=== PATIENT | male | born 1940 | race Caucasian/White ===

== ENCOUNTER 2018-06-06 21:37 | Emergency (ER) | payer MEDICARE, BC ==
[~2018-06-06] VITALS: Ht 177.8 cm; Wt 80.0 kg
[~2018-06-06 21:37] MED LIST: ANTIVERT 25MG25 MG PO; ASPIRIN 32325 MG/TAB PO; CENTRUM1 TAB PO; COQ PO; FISH OIL1 POW; FORTAMET500 MG PO; LESCOL; VITAMIN D1000 IU PO; [UNRECOGNIZED DRUG - OTHER] PO
[2018-06-06 21:48] VITALS: TEMP 98.7
[2018-06-06 22:21] LABS: BASO % 0.7 % (0.0-2.0); EOS # 0.2 (0.0-0.7); EOS % 3.7 % (0-4.0); GRAN # 2.9 (1.4-6.5); HEMATOCRIT 37.8 % (42.0-52.0); HEMOGLOBIN 12.5 g/dl (13.5-18.0); LYMPH # 2.2 (1.2-3.4); LYMPH % 36.6 % (20.0-51.0); MEAN CELL VOLUME 104 fl (80.0-100.0); MEAN CORPUSCULAR HEMOGLOBIN 34 pg (27.0-31.0); MEAN CORPUSCULAR HGB CONC 33 g/dl (33.0-37.0); MEAN PLATELET VOLUME 8.8 fl (7.4-10.4); MONO # 0.6 (0.1-0.6); MONO % 9.7 % (1.7-9.3); PLATELET COUNT 191 K/mm3 (130-400); RED BLOOD COUNT 3.63 M/mm3 (4.20-5.60); REDCELL DISTRIBUTION WIDTH-CV 12.2 % (11.5-14.5)
[2018-06-06 22:30] LABS: ALANINE AMINOTRANSFERASE 39 U/L (21-72); ALBUMIN 3.8 gm/dL (3.5-5.0); ALCOHOL(ethanol),MEDICAL 16 mg/dL; ALKALINE PHOSPHATASE 55 U/L (50-136); ANION GAP 13 mmol/L (7-16); AST,SGOT 31 U/L (15-37); BILIRUBIN,TOTAL 0.4 mg/dL (0.0-1.0); BLOOD UREA NITROGEN 17 mg/dL (9-20); CALCIUM 8.6 mg/dL (8.4-10.2); CARBON DIOXIDE 26 mmol/L (22-30); CHLORIDE 103 mmol/L (98-107); CREATININE, serum 1.32 mg/dL (0.66-1.25); GLUCOSE 100 mg/dL (74-106); POTASSIUM 3.3 mmol/L (3.4-5.0); SODIUM 142 mmol/L (137-145); TOTAL PROTEIN 6.5 gm/dL (6.4-8.2)
[2018-06-06 22:38] LABS: COLLECTION METHOD CLEAN CATCH
[2018-06-06 22:42] LABS: TROPONIN-I < 0.012 ng/mL (0.000-0.034)
[2018-06-06] MEDS ORDERED: ASPIRIN 81M81 MG/TA2 PO (22:49)
[2018-06-06] MEDS ORDERED: NAMENDA 10MG TA10 MG PO (22:50)
[2018-06-06] MEDS ORDERED: CRESTOR 10MG10 MG PO (22:51)
[2018-06-06 22:53] LABS: AMORPHOUS CRYSTAL Present /uL; MUCOUS Present /lpf; PH 5 (5-8); SQUAMOUS EPITHELIAL None Seen /hpf; URINE APPEARANCE Hazy; URINE BACTERIA None Seen /hpf; URINE BILIRUBIN Negative (NEGATIVE); URINE BLOOD Negative (NEGATIVE); URINE COLOR Yellow; URINE GLUCOSE Negative (NEGATIVE); URINE KETONE Negative (NEGATIVE); URINE LEUKOCYTE ESTERASE Negative (NEGATIVE); URINE NITRATE Negative (NEGATIVE); URINE PROTEIN(semi-quant) Negative (NEGATIVE); URINE RBC 0-2 /hpf; URINE UROBILINOGEN Negative (NEGATIVE)
[2018-06-06] MEDS ORDERED: CEPHALEXIN500 M1 PO (23:45)
[2018-06-07 00:31] VITALS: BP 122/63; PULSE 56
== END 2018-06-07 00:32 | disposition home or self-care (01) ==
LOC: COL.ER 21:37
PROVIDERS: Emergency Medicine
DX: S01.01XA Laceration without foreign body of scalp, initial encounter (principal); S01.312A Laceration without foreign body of left ear, initial encounter; R42 Dizziness and giddiness; R55 Syncope and collapse; E78.5 Hyperlipidemia, unspecified; F03.90 Unspecified dementia, unspecified severity, without behavioral disturbance, psychotic disturbance, mood disturbance, and anxiety; Z79.82 Long term (current) use of aspirin; Z23 Encounter for immunization; W18.30XA Fall on same level, unspecified, initial encounter; W22.03XA Walked into furniture, initial encounter; Y92.009 Unspecified place in unspecified non-institutional (private) residence as the place of occurrence of the external cause

== ENCOUNTER → 2018-07-05 | Outpatient (CLI) | payer MEDICARE, BC ==
[~2018-07-05] MED LIST changes: +ASPIRIN 81M81 MG/TA2 PO; +CEPHALEXIN500 M1 PO; +CRESTOR 10MG10 MG PO; +NAMENDA 10MG TA10 MG PO
== END ==
LOC: COL.CARD 07-03 10:00
DX: R55 Syncope and collapse (principal)

== ENCOUNTER → 2020-06-29 | Outpatient (CLI) | payer MEDICARE, BC ==
[~2020-06-29] VITALS: Ht 177.8 cm; Wt 68.4 kg
[~2020-06-29] MED LIST changes: +ARICEPT10 MG PO; -CENTRUM1 TAB PO; +FISH OIL 1000MG1 CAP PO; +KEPPRA 500MG500 MG PO; +ONE-A-DAY ESSE1 EACH PO; +THE MEDICINE S200 M2 PO; +VITAMIN D31000 I1 PO
[2020-06-29 13:26] VITALS: BP 131/78; PULSE 50
[2020-06-29 15:20] VITALS: BP 154/75; PULSE 49
== END ==
LOC: COL.RAD 13:11
DX: M54.5 Low back pain (principal); G89.29 Other chronic pain
CPT/HCPCS: J3301